=== PATIENT | male | born 1990 | race Two or more races ===

== ENCOUNTER 2021-08-30 07:41 | Emergency (ER) | payer OTHER ==
[~2021-08-30] VITALS: Ht 170.2 cm; Wt 89.8 kg
[2021-08-30 08:08] VITALS: BP 135/86
[2021-08-30] MEDS ORDERED: NEOM10SO7 EACH EAR (08:26)
[2021-08-30] MEDS ORDERED: AMOX1TAB61 PO (08:26)
--- NOTE | 2021-08-30 08:26 | PHYS DOC ---
Past Medical History Past Medical History: No Pertinent History Past Surgical History: No Surgical History Alcohol Use: None Drug Use: None General Adult EDM: Chief Complaint: EARACHE/EAR PAIN HPI: HPI: Patient is a 31 year old male who present to ER for evaluation of bilateral ear pain started last . Patient said he had some leftover penicillin, he took the medication, he feels much better on Saturday. However he started having the pain again in his ears yesterday after he finished with the antibiotic. Patient denies any history of diabetic. Patient denies any hearing loss. Patient said he started working out again on Saturday, he went to the gym, he was wearing earbuds. Patient denies any fever, no headache, no neck pain. Review of Systems: Review of Systems: Constitutional: Denies fever or chills. [] Eyes: Denies change in visual acuity. [] HENT: Denies nasal congestion or sore throat. Positive for bilateral ear pain. Respiratory: Denies cough or shortness of breath. [] Cardiovascular: Denies chest pain or edema. [] GI: Denies abdominal pain, nausea, vomiting, bloody stools or diarrhea. [] : Denies dysuria. [] Musculoskeletal: Denies back pain or joint pain. [] Integument: Denies rash. [] Neurologic: Denies headache, focal weakness or sensory changes. [] Endocrine: Denies polyuria or polydipsia. [] Lymphatic: Denies swollen glands. [] Psychiatric: Denies depression or anxiety. [] Heart Score: C/O Chest Pain: N/A Risk Factors: Risk Factors: DM, Current or recent (<one month) smoker, HTN, HLP, family history of CAD, obesity. Risk Scores: Score 0 - 3: 2.5% MACE over next 6 weeks - Discharge Home Score 4 - 6: 20.3% MACE over next 6 weeks - Admit for Clinical Observation Score 7 - 10: 72.7% MACE over next 6 weeks - Early Invasive Strategies Physical Exam: PE: Constitutional: Well developed, well nourished, no acute distress, non-toxic appearance. [] HENT: Normocephalic, atraumatic, bilateral external ear canal are swollen, tragus is tender to palpation bilaterally, oropharynx moist, no oral exudates, nose normal. No trismus, no mastoid tenderness to palpation. Eyes: PERRLA, EOMI, conjunctiva normal, no discharge. [] Neck: Normal range of motion, no tenderness, supple, no stridor. [] Neurologic: Alert and oriented X 3, normal motor function, normal sensory function, no focal deficits noted. [] Psychologic: Affect normal, judgement normal, mood normal. [] EKG: EKG: [] Radiology/Procedures: Radiology/Procedures: [] Course & Med Decision Making: Course & Med Decision Making Pertinent Labs and Imaging studies reviewed. (See chart for details) Patient is a 30-year-old male who present to ER due to bilateral ear pain, patient has bilateral otitis externa, he has no history diabetic. Patient will be discharged with antibiotic. Dragon Disclaimer: Dragon Disclaimer: This electronic medical record was generated, in whole or in part, using a voice recognition dictation system. Departure Departure Impression: Primary Impression: Otitis externa of both ears Disposition: HOME / SELF CARE / HOMELESS Condition: STABLE Referrals: RUSTAM MONROY MD Please call this ENT doctor for follow up next week. Patient Instructions: Otitis Externa Additional Instructions: Thank you for visiting our Emergency Department. We appreciate you trusting us with your care. If any additional problems come up don't hesitate to return to visit us. Please follow up with your primary care provider so they can plan additional care if needed and know about the problem that you had. If symptoms worsen come back to the Emergency Department. Any concerning symptoms that start such as chest pain, shortness of air, weakness or numbness on one side of the body, running high fevers or any other concerning symptoms return to the ER. Scripts Neomycin/Polymyxin B Sulf/Hc ([id number]-OC EAR SOLN) 10 Ml Solution 4 DROP EACH EAR QID for 7 Days, #20 ML 0 Refills Prov: KRISTOPHER CHACON DO 08/30/21 Amoxicillin/Potassium Clav (AUGMENTIN 875-125 TABLET) 1 Each Tablet 1 TAB PO BID for 10 Days, #20 TAB 0 Refills Prov: KRISTOPHER CHACON DO 08/30/21 KRISTOPHER CHACON DO Aug 30, 2021 08:26
== END 2021-08-30 08:37 | disposition home or self-care (01) ==
LOC: ER 07:41
DX: H60.93 Unspecified otitis externa, bilateral (principal)
CPT/HCPCS: 99281